=== PATIENT | female | born 1990 | race Hispanic/Latino ===

== ENCOUNTER 2021-11-04 19:34 | Observation (INO) | payer BC ==
[~2021-11-04] VITALS: Ht 165.1 cm; Wt 73.0 kg
[2021-11-04 20:14] LABS: APPEARANCE,URINE CLEAR (CLEAR); BILIRUBIN,URINE NEGATIVE (NEGATIVE); COLOR,URINE YELLOW (YELLOW); GLUCOSE, URINE (UA) NEGATIVE (NEGATIVE); KETONES,URINE 15 mg/dL (NEGATIVE); LEUKOCYTE ESTERASE ,URINE LARGE (NEGATIVE); NITRATE,URINE NEGATIVE (NEGATIVE); OCCULT BLOOD,URINE NEGATIVE (NEGATIVE); PROTEIN,URINE NEGATIVE (NEGATIVE)
[2021-11-04 20:36] LABS: BACTERIA,URINE Few /HPF (None Seen); MUCUS,URINE Few LPF (None Seen); SQUAMOUS EPITHELIAL CELL,UR Few /HPF (0-2)
[2021-11-04 21:08] VITALS: BP 111/80
[2021-11-04] MEDS ORDERED: PREN1TAB80 PO (21:12)
[2021-11-04] MEDS ORDERED: LACTATED RINGERS 1000ML 1,000 ML IV PRN (22:00)
[2021-11-04 22:34] LABS: HEMATOCRIT 32.1 % (36-48); MEAN CORPUSCULAR HGB CONC 31.2 g/dL (32.0-36.0); MEAN CORPUSCULAR VOLUME 83.4 fL (79-99); NUCLEATED RED BLOOD CELLS 0.3 % (0.0-0.19); RED BLOOD CELL COUNT(AUTO) 3.85 MIL/uL (4.00-5.50); RED CELL DISTRIBUTION WIDTH 14.3 % (11.0-15.5); WHITE BLOOD COUNT (AUTO) 11.7 K/uL (4.8-10.8)
[2021-11-05 08:51] LABS: RAPID PLASMA REAGIN NONREACTIVE (NONREACTIVE)
== END 2021-11-05 03:30 | disposition home or self-care (01) ==
LOC: EDH 19:34 → INTOOBSV 19:53 → OBSVTOIN 19:53 → LDH 19:53
PROVIDERS: ADMIT Obstetrics & Gynecology; ATTEND Obstetrics & Gynecology
DX: O62.9 Abnormality of forces of labor, unspecified (principal); Z20.822 Contact with and (suspected) exposure to COVID-19; O99.891 Other specified diseases and conditions complicating pregnancy; M54.9 Dorsalgia, unspecified; Z3A.38 38 weeks gestation of pregnancy; Z79.899 Other long term (current) drug therapy
CPT/HCPCS: 96360; 59025; 85027; 86592; 86850; 86900; 86901; 87088; 87340; 86870; 86701; 87390; 81001; 36415; 87635; 96361; G0378 ×8; J7120